=== PATIENT | female | born 1940 | race Caucasian/White ===

== ENCOUNTER 2024-10-26 22:47 | Emergency (ER) | payer OTHER ==
[~2024-10-26] VITALS: Ht 152.4 cm; Wt 63.6 kg
[2024-10-26 23:02] VITALS: TEMP 98.1
[2024-10-26 23:40] LABS: PLATELET COUNT (AUTO) 590 K/uL (150-450); RED BLOOD CELL COUNT(AUTO) 4.33 MIL/uL (4.00-5.20); RED CELL DISTRIBUTION WIDTH 17.4 % (11.5-14.5); WHITE BLOOD COUNT (AUTO) 8.0 K/uL (4.5-11.0)
[2024-10-26 23:50] LABS: CALCIUM, TOTAL 9.5 mg/dL (8.8-10.5); CREATININE 1.18 mg/dL (0.60-1.30); GLOMERULAR FILTR. RATE CALC 44 mL/min (>60); GLUCOSE,RANDOM 122 mg/dL (70-110); SODIUM SERUM 138 mmol/L (136-145); UREA NITROGEN, BLOOD 31 mg/dL (7-18)
[2024-10-26 23:58] LABS: TROPONIN I-HIGH SENSITIVITY 5 ng/L (<51)
[2024-10-27 03:32] VITALS: BP 147/83; PULSE 90; RESP 18; O2SAT 98
[2024-10-27] MEDS: ONDANSETRON 4 MG TABLET PO ONE (04:16)
[2024-10-27] MEDS: SODIUM CHLORIDE 0.9% 1,000 ML IV ONE (04:21)
== END 2024-10-27 06:34 | disposition home or self-care (01) ==
LOC: EMS 22:52
DX: K52.9 Noninfective gastroenteritis and colitis, unspecified (principal); I10 Essential (primary) hypertension
CPT/HCPCS: 99285; 80048; 83690; 84484; 85025; 36415; 93005; 96360; 96361; 74018; Q0162; J7030